=== PATIENT | female | born 1985 | race African-American/Black ===

== ENCOUNTER 2018-06-18 11:24 | Emergency (ER) | payer SELFPAY ==
[2018-06-18 11:28] VITALS: TEMP 98.7; BMI 28.3
--- NOTE | 2018-06-18 11:52 | PDOC ---
*Physical Exam - Vital Signs Last Vital Signs Temp Pulse Resp BP Pulse Ox 98.7 F 98 H 18 128/83 100 06/18/18 11:26 06/18/18 11:26 06/18/18 11:26 06/18/18 11:26 06/18/18 11:26 ED Treatment Course - LABORATORY CBC & Chemistry Diagram: 06/18/18 12:05 06/18/18 12:05 Medical Decision Making - Medical Decision Making 06/18/18 11:51 Pt seen by Midlevel Provider under my direct supervision Ancillary studies reviewed I agree with plan as outlined by Midlevel Provider *DC/Admit/Observation/Transfer Diagnosis at time of Disposition: Chest pain, Elevated CK - Discharge Dispostion Disposition: HOME Condition at time of disposition: Improved - Referrals - Patient Instructions Printed Discharge Instructions: DI for Atypical Chest Pain Additional Instructions: At this time I recommend drinking at least 2 L of water and rest, and take Tylenol for discomfort. If symptoms worsen despite the above recommendations please return to the nearest emergency room. - Post Discharge Activity
[2018-06-18] MEDS ORDERED: KETOROLAC TROMETHAMINE 60 MG/2 ML VIAL IM ONE (12:17)
[2018-06-18] MEDS ORDERED: KETOROLAC TROMETHAMINE 30 MG/1 ML VIAL IVPUSH STA (12:31)
[2018-06-18] MEDS ORDERED: KETOROLAC TROMETHAMINE 30 MG/1 ML VIAL ONE (12:37)
[2018-06-18 12:43] LABS: BASO % 0.3 % (0-2.0); EOS % 0.8 % (0-4.5); HEMATOCRIT 37.9 % (32.4-45.2); HEMOGLOBIN 13.4 GM/dL (10.7-15.3); LYMPH % 17.1 % (8-40); MCH 33.1 pg (25.7-33.7); MCHC 35.4 g/dl (32.0-36.0); MEAN CELL VOLUME 93.8 fl (80-96); MEAN PLT VOLUME 7.6 fl (7.5-11.1); MONO % 11.6 % (3.8-10.2); NEUT % 70.2 % (42.8-82.8); PLATELET COUNT 271 K/MM3 (134-434); RBC 4.04 M/mm3 (3.60-5.2); RDW 12.1 % (11.6-15.6)
--- NOTE | 2018-06-18 12:57 | PDOC ---
History of Present Illness - General Chief Complaint: Chest Pain Stated Complaint: CHEST PAIN Time Seen by Provider: 06/18/18 11:44 History Source: Patient Exam Limitations: No Limitations - History of Present Illness Initial Comments: 06/18/18 12:01 33-year-old female with no past medical history presents with complaints of midsternal chest tightness which she awoke with this morning. Patient denies shortness of breath, fever, chills, cough, recent travel, leg tenderness, history of PE, anticoagulation disorders spell in the history of exogenous estrogen usage. Timing/Duration: 4-6 hours Severity: moderate Associated Symptoms: reports: chest pain Past History - Travel Traveled outside of the country in the last 30 days: No - Past Medical History Allergies/Adverse Reactions: Allergies Allergy/AdvReac Type Severity Reaction Status Date / Time No Known Allergies Allergy Verified 06/18/18 11:26 Home Medications: Ambulatory Orders NK [No Known Home Medication] 06/18/18 COPD: No - Immunization History Immunization Up to Date: Yes - Suicide/Smoking/Psychosocial Hx Smoking History: Never smoked Hx Alcohol Use: No Drug/Substance Use Hx: No Patient Lives Alone: No Lives with/in: spouse/SO Review of Systems - Review of Systems Able to Perform ROS?: Yes Constitutional: No: Symptoms Reported HEENTM: No: Symptoms Reported Respiratory: No: Symptoms reported Cardiac (ROS): Yes: Chest Pain ABD/GI: No: Symptoms Reported : No: Symptoms Reported Musculoskeletal: No: Symptoms Reported Integumentary: No: Symptoms Reported Neurological: No: Symptoms reported Endocrine: No: Symptoms Reported Hematologic/Lymphatic: No: Symptoms Reported *Physical Exam - Vital Signs Last Vital Signs Temp Pulse Resp BP Pulse Ox 98.7 F 98 H 18 128/83 100 06/18/18 11:26 06/18/18 11:26 06/18/18 11:26 06/18/18 11:26 06/18/18 11:26 - Physical Exam General Appearance: Yes: Nourished, Appropriately Dressed. No: Apparent Distress HEENT: positive: EOMI, CHLOE, TMs Normal, Pharynx Normal. negative: Pale Conjunctivae Neck: positive: Supple Respiratory/Chest: positive: Lungs Clear, Normal Breath Sounds. negative: Chest Tender, Respiratory Distress, Accessory Muscle Use Cardiovascular: positive: Regular Rhythm, Regular Rate. negative: Murmur Gastrointestinal/Abdominal: positive: Soft. negative: Tenderness Musculoskeletal: negative: CVA Tenderness Extremity: positive: Normal Capillary Refill Integumentary: positive: Normal Color, Warm, Moist Neurologic: positive: Normal Mood/Affect, Motor Strength 5/5 (ambulatory) Moderate Sedation - Procedure Monitoring Vital Signs: Procedure Monitoring Vital Signs Temperature 98.7 F 06/18/18 11:26 Pulse Rate 98 H 06/18/18 11:26 Respiratory Rate 18 06/18/18 11:26 Blood Pressure 128/83 06/18/18 11:26 O2 Sat by Pulse Oximetry (%) 100 06/18/18 11:26 Heart Score/ECG Review - ECG Intrepretation Rhythm: Regular Rhythm ([address] normal sinus rhythm. No ST elevation or depression) ED Treatment Course - LABORATORY CBC & Chemistry Diagram: 06/18/18 12:05 06/18/18 12:05 Medical Decision Making - Medical Decision Making 06/18/18 13:13 Chief complaint: Midsternal chest tightness since awakening this morning. No other complaints. Exam: no reproducible chest tenderness Plan: EKG labs d-dimer 06/18/18 13:49 Laboratory Tests 06/18/18 06/18/18 06/18/18 12:05 12:05 12:05 WBC 10.0 Hgb 13.4 Hct 37.9 Plt Count 271 Neutrophils % 70.2 Monocytes % 11.6 H D-Dimer Cancelled Sodium 140 Potassium 3.7 Chloride 109 H Carbon Dioxide 24 Anion Gap 7 L BUN 7 Creatinine 0.6 Random Glucose 82 Calcium 8.7 Total Bilirubin 0.4 AST 30 ALT 14 Alkaline Phosphatase 54 Creatine Kinase 844 H Creatine Kinase Index 0.1 CK-MB (CK-2) 1.6 Troponin I 0.05 Total Protein 7.6 Albumin 3.6 06/18/18 13:00 WBC Hgb Hct Plt Count Neutrophils % Monocytes % D-Dimer Pending Sodium Potassium Chloride Carbon Dioxide Anion Gap BUN Creatinine Random Glucose Calcium Total Bilirubin AST ALT Alkaline Phosphatase Creatine Kinase Creatine Kinase Index CK-MB (CK-2) Troponin I Total Protein Albumin NS bolus ordered. patient states pain has resolved up receiving Toradol 06/18/18 14:47 Laboratory Tests 06/18/18 13:00 D-Dimer 295 06/18/18 14:58 Patient be discharged home with recommendations to drink plenty of fluids rest and take Tylenol for discomfort. Patient understands if symptoms worsen to return to the nearest ER. 06/18/18 14:59 *DC/Admit/Observation/Transfer Diagnosis at time of Disposition: Chest pain, Elevated CK - Discharge Dispostion Disposition: HOME Condition at time of disposition: Improved - Referrals - Patient Instructions Printed Discharge Instructions: DI for Atypical Chest Pain Additional Instructions: At this time I recommend drinking at least 2 L of water and rest, and take Tylenol for discomfort. If symptoms worsen despite the above recommendations please return to the nearest emergency room. - Post Discharge Activity
[2018-06-18 13:20] LABS: ALBUMIN 3.6 g/dl (3.4-5.0); ALK PHOS 54 U/L (45-117); ANION GAP 7 MMOL/L (8-16); BILIRUBIN,TOTAL 0.4 mg/dL (0.2-1); BLOOD UREA NITROGEN 7 mg/dL (7-18); CALCIUM 8.7 mg/dL (8.5-10.1); CHLORIDE 109 mmol/L (98-107); CO2 24 mmol/L (21-32); CREATININE 0.6 mg/dL (0.55-1.3); GLUCOSE,RANDOM 82 mg/dL (74-106); POTASSIUM 3.7 mmol/L (3.5-5.1); SGOT/AST 30 U/L (15-37); SGPT/ALT 14 U/L (13-61); SODIUM 140 mmol/L (136-145); TOT PROT 7.6 g/dl (6.4-8.2)
[2018-06-18] MEDS ORDERED: SODIUM CHLORIDE 1,000 ML IV STA (13:48)
[2018-06-18 15:37] VITALS: BP 114/69; PULSE 86
--- NOTE | 2018-06-21 10:05 | EKG ---
Test Reason : Blood Pressure : / mmHG Vent. Rate : 089 BPM Atrial Rate : 089 BPM P-R Int : 128 ms QRS Dur : 080 ms QT Int : 362 ms P-R-T Axes : 050 038 048 degrees QTc Int : 440 ms NORMAL SINUS RHYTHM NORMAL ECG NO PREVIOUS ECGS AVAILABLE Confirmed by Jose Hung MD ([id number]) on 06/21/2018 10:04:43 AM Referred By: Confirmed By:Jose Hung MD
== END 2018-06-18 15:37 | disposition home or self-care (01) ==
LOC: JER 11:24
PROC: 3E033GC Introduction of Other Therapeutic Substance into Peripheral Vein, Percutaneous Approach (ICD-10-PCS; principal; 2018-06-18)
PROC: 3E0333Z Introduction of Anti-inflammatory into Peripheral Vein, Percutaneous Approach (ICD-10-PCS; 2018-06-18)
DX: R07.9 Chest pain, unspecified (principal); R74.8 Abnormal levels of other serum enzymes
CPT/HCPCS: 36415; 80053; 82550; 82553; 84484; 85025; 85379; 93005; 93010; 99283-25; J7030

== ENCOUNTER 2019-03-04 23:47 | Emergency (ER) | payer BC ==
[2019-03-04 23:56] VITALS: BP 116/78; PULSE 76; TEMP 98.3; BMI 27.4
[2019-03-05] MEDS ORDERED: ACETAMINOPHEN INJECTION 100 ML IVPB ONE (00:58)
[2019-03-05] MEDS ORDERED: SODIUM CHLORIDE 1,000 ML IV STA (00:59)
[2019-03-05] MEDS ORDERED: MAG HYDROX/AL HYDROX/SIMETH 30 ML UNIT-DOSE CUP PO ONE (00:59)
[2019-03-05] MEDS ORDERED: FAMOTIDINE 20 MG/50 ML IVPB 20 MG/50 ML MG IVPB ONE ×2 (00:59)
[2019-03-05] MEDS ORDERED: ONDANSETRON 4 MG/2 ML VIAL ONE (00:59)
[2019-03-05] MEDS ORDERED: ACETAMINOPHEN 1000 MG/100 ML VIAL (NON FORMULARY) IVPB ONE (00:59)
[2019-03-05] MEDS ORDERED: MAG HYDROX/AL HYDROX/SIMETH 30 ML UNIT-DOSE CUP ONE (00:59)
[2019-03-05] MEDS ORDERED: ONDANSETRON 4 MG/2 ML VIAL IVPUSH ONE (00:59)
--- NOTE | 2019-03-05 01:11 | PDOC ---
History of Present Illness - General Chief Complaint: Pain, Acute Stated Complaint: ABDOMINAL PAIN History Source: Patient Exam Limitations: No Limitations - History of Present Illness Initial Comments: 33 F with no past medical history presents to the emergency department with epigastric pain that has been ongoing for 3 hours. Per the patient, she was diagnosed by her PMD (Dr. Guevara) that she had a gastric ulcer (denies having a previous endoscopy). Per the patient, she states the pain is sharp, non radiating, 10/10 at onset and currently significantly improved, without relief with tylenol, and associated with nausea. Per the patient, she is currently on her menstrual cycle and denies vaginal discharge. Denies the following: fever, chills, SOB, abdominal surgeries, chest pain, vomiting, lightheadedness, headache, ears/nose/throat pain, dysuria, hematuria, diarrhea, hematochezia, and melena. Allergies: NKDA Social: Denies tobacco, alcohol, and substance abuse. Past History - Past Medical History Allergies/Adverse Reactions: Allergies Allergy/AdvReac Type Severity Reaction Status Date / Time No Known Allergies Allergy Verified 03/04/19 23:55 Home Medications: Ambulatory Orders NK [No Known Home Medication] 06/18/18 COPD: No - Immunization History Immunization Up to Date: Yes - Suicide/Smoking/Psychosocial Hx Smoking History: Never smoked Have you smoked in the past 12 months: No Information on smoking cessation initiated: No Hx Alcohol Use: No Drug/Substance Use Hx: No Review of Systems - Review of Systems Able to Perform ROS?: Yes Is the patient limited [place]ian proficient: No Constitutional: No: Chills, Diaphoresis, Fever, Weakness HEENTM: No: Eye Pain, Ear Pain, Nose Pain, Throat Pain, Mouth Pain Respiratory: No: Cough, Shortness of Breath, Hemoptysis Cardiac (ROS): No: Chest Pain, Lightheadedness, Palpitations, Syncope, Chest Tightness ABD/GI: Yes: Nausea, Abdominal cramping. No: Constipated, Diarrhea, Rectal Bleeding, Vomiting, Tarry Stools : No: Burning, Dysuria, Hematuria, Incontinence Musculoskeletal: No: Back Pain, Joint Pain, Neck Pain Integumentary: No: Bruising, Erythema, Rash Neurological: No: Headache, Numbness, Tingling, Tremors Psychiatric: No: Change in Appetite Endocrine: No: Unexplained Weight Gain Hematologic/Lymphatic: No: Anemia *Physical Exam - Vital Signs Last Vital Signs Temp Pulse Resp BP Pulse Ox 98.3 F 76 20 116/78 99 03/04/19 23:55 03/04/19 23:55 03/04/19 23:55 03/04/19 23:55 03/04/19 23:55 - Physical Exam General Appearance: Yes: Nourished, Appropriately Dressed. No: Apparent Distress, Intoxicated HEENT: positive: EOMI, CHLOE, Normal Voice, Symmetrical, Pharynx Normal, Hearing Grossly Normal. negative: Pale Conjunctivae, Scleral Icterus (R), Scleral Icterus (L), Muffled/Hoarse voice, Pharyngeal Erythema, Tonsillar Exudate, Tonsillar Erythema, Nasal Congestion, Rhinorrhea, Sinus Tenderness, Excessive drooling Neck: positive: Trachea midline, Supple. negative: Tender, Lymphadenopathy (R) , Lymphadenopathy (L), Tender lateral, Tender midline Respiratory/Chest: positive: Lungs Clear, Normal Breath Sounds. negative: Chest Tender, Respiratory Distress, Accessory Muscle Use, Crackles, Rales, Rhonchi, Stridor, Wheezing Cardiovascular: positive: Regular Rhythm, Regular Rate, S1, S2. negative: Systolic Murmur Gastrointestinal/Abdominal: positive: Normal Bowel Sounds, Tender (epigastric tenderness/lower midline abdominal tenderness), Flat, Soft. negative: Distended , Guarding, Rebound Lymphatic: negative: Adenopathy Musculoskeletal: positive: Normal Inspection. negative: CVA Tenderness, Vertebral Tenderness Extremity: positive: Normal Capillary Refill, Normal Inspection, Normal Range of Motion. negative: Tender, Swelling, Calf Tenderness Integumentary: positive: Normal Color, Dry, Warm. negative: Swelling, Ecchymosis Neurologic: positive: Fully Oriented, Alert, Normal Mood/Affect ED Treatment Course - LABORATORY CBC & Chemistry Diagram: 03/05/19 01:25 03/05/19 01:25 Medical Decision Making - Medical Decision Making 33 F with no past medical history presents to the emergency department with epigastric pain that has been ongoing for 3 hours. Per the patient, she was diagnosed by her PMD (Dr. Guevara) that she had a gastric ulcer (denies having a previous endoscopy). Initial vitals: Initial Vital Signs Temp Pulse Resp BP Pulse Ox 98.3 F 76 20 116/78 99 03/04/19 23:55 03/04/19 23:55 03/04/19 23:55 03/04/19 23:55 03/04/19 23:55 Work up: ddx: pancreatitis vs gastritis vs perforation of suspected ulcer vs GERD vs cholelithiasis vs cholecystitis RUQ US ordered to rule out cholelithiasis. Patient was signed out to Dr. Selby *DC/Admit/Observation/Transfer Diagnosis at time of Disposition: Cholelithiases - Referrals Referrals: Real Guevara [Primary Care Provider] - - Patient Instructions Printed Discharge Instructions: DI for Gallstones - Post Discharge Activity
--- NOTE | 2019-03-05 01:28 | PDOC ---
Attending Attestation - Resident Resident Name: Mariano Ulloa - ED Attending Attestation I have performed the following: I have examined & evaluated the patient, The case was reviewed & discussed with the resident, I agree w/resident's findings & plan, Exceptions are as noted - HPI HPI: 03/05/19 01:27 this 33 yo female p/w 3 hours of epigastric pain, no vomiting, but some nausea she took 1 tablet of tylenol (325mg) without relief - Physicial Exam PE: 03/05/19 01:[address] Ulloa 's physical exam - Medical Decision Making 03/05/19 01:29 PMH: her PCP told her she had a gastric ulcer (never had endoscopy or H pylori testing) diff diagnosis: includes GERD,cholecystits,gastritis,ACS plan abd Ultrasound,cbc,comp.lipase,IV fluids,anti emetics ,reassess pts
[2019-03-05 01:42] LABS: BASO % 0.3 % (0-2.0); EOS % 0.9 % (0-4.5); HEMATOCRIT 36.7 % (32.4-45.2); HEMOGLOBIN 12.2 GM/dL (10.7-15.3); LYMPH % 19.1 % (8-40); MCH 32.1 pg (25.7-33.7); MCHC 33.4 g/dl (32.0-36.0); MEAN CELL VOLUME 96.3 fl (80-96); MEAN PLT VOLUME 7.5 fl (7.5-11.1); MONO % 10.7 % (3.8-10.2); PLATELET COUNT 251 K/MM3 (134-434); RBC 3.81 M/mm3 (3.60-5.2); RDW 12.9 % (11.6-15.6); WHITE BLOOD COUNT 7.4 K/mm3 (4.0-10.0)
[2019-03-05 02:16] LABS: ALBUMIN 3.5 g/dl (3.4-5.0); BILIRUBIN,TOTAL 0.7 mg/dL (0.2-1); BLOOD UREA NITROGEN 17.2 mg/dL (7-18); CALCIUM 9.2 mg/dL (8.5-10.1); CREATININE 0.6 mg/dL (0.55-1.3); POTASSIUM 4.1 mmol/L (3.5-5.1); TOT PROT 7.1 g/dl (6.4-8.2)
--- NOTE | 2019-03-05 02:35 | PDOC ---
*Physical Exam - Vital Signs Last Vital Signs Temp Pulse Resp BP Pulse Ox 98.3 F 76 20 116/78 99 03/04/19 23:55 03/04/19 23:55 03/04/19 23:55 03/04/19 23:55 03/04/19 23:55 ED Treatment Course - LABORATORY CBC & Chemistry Diagram: 03/05/19 01:25 03/05/19 01:25 - ADDITIONAL ORDERS Additional order review: Laboratory Results 03/05/19 03/05/19 03/05/19 01:25 01:25 01:25 Sodium 140 Potassium 4.1 Chloride 105 Carbon Dioxide 28 Anion Gap 8 BUN 17.2 Creatinine 0.6 Est GFR (CKD-EPI)AfAm 139.78 Est GFR (CKD-EPI)NonAf 120.61 Random Glucose 85 Lactic Acid 1.2 Calcium 9.2 Total Bilirubin 0.7 AST 22 ALT 13 Alkaline Phosphatase 56 Total Protein 7.1 Albumin 3.5 Lipase 86 Serum , Qual Negative 03/05/19 01:25 RBC 3.81 MCV 96.3 H MCHC 33.4 RDW 12.9 MPV 7.5 Neutrophils % 69.0 Lymphocytes % 19.1 Monocytes % 10.7 H Eosinophils % 0.9 Basophils % 0.3 - Medications Given in the ED: ED Medications Discontinued Medications Generic Name Dose Route Start Last Admin Trade Name Magali PRN Reason Stop Dose Admin Acetaminophen 1,000 mg 03/05/19 00:59 03/05/19 01:22 Ofirmev Injection - IVPB 03/05/19 01:00 1,000 mg ONCE ONE Administration Al Hydroxide/Mg Hydroxide 30 ml 03/05/19 00:59 03/05/19 01:22 Mylanta Oral Suspension - PO 03/05/19 01:00 30 ml ONCE ONE Administration Famotidine/Sodium Chloride 20 mg in 50 mls @ 100 mls/hr 03/05/19 00:59 01:22 Pepcid 20 Mg Premixed Ivpb - IVPB 03/05/19 01:28 100 mls/hr ONCE ONE Administration Sodium Chloride 1,000 mls @ 1,000 mls/hr 03/05/19 00:59 03/05/19 01:22 Normal Saline - IV 03/05/19 01:58 1,000 mls/hr ASDIR STA Administration Ondansetron HCl 4 mg 03/05/19 00:59 03/05/19 01:23 Zofran Injection IVPUSH 03/05/19 01:00 4 mg ONCE ONE Administration Medical Decision Making - Medical Decision Making 03/05/19 02:34 Patient Name: REGULO LIMON THIS IS A PRELIMINARY REPORT FROM [facility] DATE OF SERVICE: 2019-03-05 01:45:03 IMAGES: 44 EXAM: ULTRASOUND ABDOMEN INCOMPLETE Mobile gallstones, largest 2.0 cm . No acute cholecystitis Normal common duct diameter, 2 mm. Technologist's notes imply that there may be small, mobile stones within the common duct, although they are not well seen on available images Unremarkable liver, right kidney and visualized aorta and pancreas *DC/Admit/Observation/Transfer Diagnosis at time of Disposition: Cholelithiases - Discharge Dispostion Disposition: HOME Condition at time of disposition: Stable Decision to Admit order: No - Referrals Referrals: Real Guevara [Primary Care Provider] - - Patient Instructions Printed Discharge Instructions: DI for Gallstones - Post Discharge Activity
[2019-03-05 04:22] LABS: EPI CELLS 3.3 /HPF (0-5/HPF); HYALINE CASTS 6 /lpf (0-8); URINE APPEARANCE CLEAR; URINE BACTERIA 1155.6 /hpf (NEGATIVE); URINE BILIRUBIN NEGATIVE (NEGATIVE); URINE COLOR YELLOW; URINE GLUCOSE (UA) NEGATIVE (NEGATIVE); URINE KETONE NEGATIVE (NEGATIVE); URINE LEUK ESTERASE NEGATIVE (NEGATIVE); URINE NITRITE NEGATIVE (NEGATIVE); URINE PROTEIN NEGATIVE (NEGATIVE); URINE RBC 14 /hpf (0-4); URINE WBC 2 /hpf (0-5)
== END 2019-03-05 03:07 ==
LOC: JER 23:47
PROC: 3E033GC Introduction of Other Therapeutic Substance into Peripheral Vein, Percutaneous Approach (ICD-10-PCS; principal; 2019-03-04)
PROC: 3E033GC Introduction of Other Therapeutic Substance into Peripheral Vein, Percutaneous Approach (ICD-10-PCS; 2019-03-04)
PROC: 3E033NZ Introduction of Analgesics, Hypnotics, Sedatives into Peripheral Vein, Percutaneous Approach (ICD-10-PCS; 2019-03-04)
DX: K80.20 Calculus of gallbladder without cholecystitis without obstruction (principal)
CPT/HCPCS: 36415; 76705-TC; 80053; 81003; 83605; 83690; 84703; 85025; 87086; 87186; 99282-25; J0131; J7030

== ENCOUNTER 2019-04-09 21:22 | Emergency (ER) | payer BC ==
[2019-04-09 21:32] VITALS: BP 136/83; PULSE 66; TEMP 97.8; BMI 27.4
== END 2019-04-09 22:00 | disposition left against medical advice (07) ==
LOC: JER 21:22
DX: Z53.21 Procedure and treatment not carried out due to patient leaving prior to being seen by health care provider (principal)
CPT/HCPCS: 99281-25

== ENCOUNTER 2021-03-20 03:19 | Emergency (ER) | payer BC ==
[2021-03-20 03:47] VITALS: BP 112/71; PULSE 76; TEMP 98.3; BMI 27.4
[2021-03-20] MEDS ORDERED: SODIUM CHLORIDE 1,000 ML IV STA (03:54)
[2021-03-20] MEDS ORDERED: ACETAMINOPHEN 1000 MG/100 ML VIAL (NON FORMULARY) IVPB ONE (03:55)
[2021-03-20] MEDS ORDERED: ACETAMINOPHEN INJECTION 100 ML IVPB ONE (03:59)
[2021-03-20 04:55] LABS: BASO % 0.7 % (0-2.0); EOS % 0.5 % (0-4.5); HEMATOCRIT 40.6 % (32.4-45.2); LYMPH % 13.9 % (8-40); MCH 32.7 pg (25.7-33.7); MCHC 34.4 g/dl (32.0-36.0); MEAN CELL VOLUME 94.8 fl (80-96); MEAN PLT VOLUME 6.9 fl (7.5-11.1); MONO % 8.2 % (3.8-10.2); NEUT % 76.7 % (42.8-82.8); PLATELET COUNT 240 10^3/uL (134-434); RBC 4.28 M/mm3 (3.60-5.2); RDW 11.9 % (11.6-15.6)
[2021-03-20 05:15] LABS: ALBUMIN 4.2 g/dl (3.4-5.0); CALCIUM 9.7 mg/dL (8.5-10.1)
[2021-03-20 05:16] LABS: BLOOD UREA NITROGEN 12.3 mg/dL (7-18)
[2021-03-20 05:18] LABS: CREATININE 0.6 mg/dL (0.55-1.3)
[2021-03-20 05:20] LABS: BILIRUBIN,TOTAL 0.2 mg/dL (0.2-1); TOT PROT 9.1 g/dl (6.4-8.2)
[2021-03-20 05:23] LABS: EPI CELLS 6 /uL (0-25.1); HYALINE CASTS 1 /uL (0-3.1); URINE APPEARANCE CLEAR; URINE BACTERIA 257 /uL (0-1359); URINE BILIRUBIN NEGATIVE (NEGATIVE); URINE COLOR YELLOW; URINE GLUCOSE (UA) NEGATIVE (NEGATIVE); URINE KETONE NEGATIVE (NEGATIVE); URINE LEUK ESTERASE NEGATIVE (NEGATIVE); URINE NITRITE NEGATIVE (NEGATIVE); URINE PROTEIN NEGATIVE (NEGATIVE); URINE RBC 57 /uL (0-23.9); URINE WBC 11 /uL (0-25.8)
[2021-03-20] MEDS ORDERED: CEFTRIAXONE 1 GM in DEXTROSE 5%-WATER - 100 ML IVPB ONE (07:11)
[2021-03-20] MEDS ORDERED: CEFTRIAXONE 1 GM/50 ML BAG ONE (07:31)
== END 2021-03-20 10:10 | disposition home or self-care (01) ==
LOC: JER 03:19
PROC: 3E033GC Introduction of Other Therapeutic Substance into Peripheral Vein, Percutaneous Approach (ICD-10-PCS; principal; 2021-03-20)
DX: O26.891 Other specified pregnancy related conditions, first trimester (principal); R10.32 Left lower quadrant pain; Z3A.09 9 weeks gestation of pregnancy
CPT/HCPCS: 36415; 76775-TC; 76817-TC; 80053; 81003; 83690; 85025; 99284-25; J0131

== ENCOUNTER 2021-08-16 16:58 | Emergency (ER) | payer BC, OTHER ==
[2021-08-16 17:03] VITALS: BP 104/67; PULSE 79; TEMP 98; BMI 30.9
== END 2021-08-16 17:45 | disposition home or self-care (01) ==
LOC: JER 16:58
DX: R06.02 Shortness of breath (principal)
CPT/HCPCS: 99281-25

== ENCOUNTER 2021-10-07 03:42 | Inpatient (IN) | payer OTHER ==
[2021-10-07] MEDS ORDERED: OXYTOCIN 20 UNITS in 0.9% NS 20 UNIT/1,000 ML INFUS.BAG IV ONE ×2 (04:38→05:59)
[2021-10-07] MEDS ORDERED: OXYTOCIN 10 UNITS/ML VIAL ONE (04:52)
[2021-10-07] MEDS ORDERED: BENZOCAINE 20% 57 GM BOTTLE TP PRN (05:36)
[2021-10-07] MEDS ORDERED: BENZOCAINE 28 GM HEMORRHOIDAL OINTMENT TP PRN (05:36)
[2021-10-07] MEDS ORDERED: BISACODYL 10 MG SUPP.RECT RC PRN (05:36)
[2021-10-07] MEDS ORDERED: METHYLERGONOVINE MALEATE 0.2 MG/1 ML AMP IM PRN (05:36)
[2021-10-07] MEDS ORDERED: IBUPROFEN 600 MG TABLET (FP) PO PRN (05:36)
[2021-10-07] MEDS ORDERED: WITCH HAZEL 50% (TUCKS) 40 PAD/JAR PAD TP PRN (05:36)
[2021-10-07] MEDS ORDERED: oxyCODONE HCL 5 MG TABLET PO PRN (05:36)
[2021-10-07 05:41] VITALS: BMI 31.8
[2021-10-07] MEDS ORDERED: ELECTROLYTE-148 SOLN 1,000 ML IV SCH (05:45)
[2021-10-07] MEDS ORDERED: OXYTOCIN 20 UNITS in 0.9% NS 20 UNIT/1,000 ML INFUS.BAG IV SCH (05:45)
[2021-10-07] MEDS: ACETAMINOPHEN 325 MG TABLET (FP) PO PRN ×2 (07:13→17:01)
[2021-10-07 07:38] LABS: HEMATOCRIT 41.2 % (32.4-45.2); HEMOGLOBIN 13.8 GM/dL (10.7-15.3); MCHC 33.5 g/dl (32.0-36.0); MEAN CELL VOLUME 98.4 fl (80-96); PLATELET COUNT 200 10^3/uL (134-434); RBC 4.19 M/mm3 (3.60-5.2); RDW 12.7 % (11.6-15.6)
[2021-10-07 07:44] LABS: INR 0.92 (0.83-1.09); PROTHROMBIN TIME (PATIENT) 10.6 SEC (9.7-13.0)
[2021-10-07 07:46] LABS: ACTIVATED PTT 22.8 SECONDS (25.2-36.5)
[2021-10-07 07:51] LABS: ALBUMIN 2.9 g/dl (3.4-5.0); BLOOD UREA NITROGEN 8.2 mg/dL (7-18); CALCIUM 8.4 mg/dL (8.5-10.1)
[2021-10-07 07:54] LABS: CREATININE 0.4 mg/dL (0.55-1.3)
[2021-10-07 07:56] LABS: BILIRUBIN,TOTAL 0.4 mg/dL (0.2-1); TOT PROT 6.2 g/dl (6.4-8.2)
[2021-10-07 10:05] LABS: ANISOCYTOSIS 0; MACROCYTOSIS 0
[2021-10-07 10:20] LABS: HEPATITIS B SURFACE AG MATERN NON-REACTIVE (NONREACTIVE)
[2021-10-07 10:48] LABS: HIV INTERPRETATION NEGATIVE (NEGATIVE)
[2021-10-08 06:38] LABS: BASO % 0.5 % (0-2.0); EOS % 0.8 % (0-4.5); HEMATOCRIT 35.1 % (32.4-45.2); HEMOGLOBIN 11.8 GM/dL (10.7-15.3); LYMPH % 21.8 % (8-40); MCHC 33.6 g/dl (32.0-36.0); MEAN CELL VOLUME 98.2 fl (80-96); MEAN PLT VOLUME 7.5 fl (7.5-11.1); MONO % 8.2 % (3.8-10.2); NEUT % 68.7 % (42.8-82.8); PLATELET COUNT 176 10^3/uL (134-434); RBC 3.58 M/mm3 (3.60-5.2); RDW 12.9 % (11.6-15.6); WHITE BLOOD COUNT 11.5 K/mm3 (4.0-10.0)
[2021-10-08] MEDS: ACETAMINOPHEN 325 MG TABLET (FP) PO PRN (08:32)
[2021-10-08 10:20] VITALS: BP 93/66; PULSE 76; TEMP 98.4
[2021-10-08] MEDS ORDERED: SENNOSIDES/DOCUSATE COMBO (SENNA PLUS) TABLET (UD) PO PRN (22:00)
== END 2021-10-08 16:30 | disposition home or self-care (01) | DRG 807 ==
LOC: JDEL 03:42 → JLDR 04:30 → J3W 08:15
PROVIDERS: ADMIT Obstetrics & Gynecology; ATTEND Obstetrics & Gynecology
PROC: 10E0XZZ Delivery of Products of Conception, External Approach (ICD-10-PCS; principal; 2021-10-07)
DX: O80 Encounter for full-term uncomplicated delivery (principal); Z37.0 Single live birth; Z3A.38 38 weeks gestation of pregnancy
CPT/HCPCS: 36415; 59409; 80053; 85025; 85610; 85730; 86762; 86780; 86850; 86900; 86901; 87340; 87389; C9803-CS; U0003; U0005